=== PATIENT | male | born 1930 | race Caucasian/White ===

== ENCOUNTER 2018-03-30 09:00 | Emergency (ER) | payer MEDICARE ==
[~2018-03-30] VITALS: Ht 175.3 cm; Wt 81.8 kg
[2018-03-30] MEDS ORDERED: HYDROcodone/acetaminophen 10/325mg tab PO ONE (10:25)
[2018-03-30] MEDS ORDERED: ondansetron/PF 4mg/2ml inj IV ONE (10:25)
[2018-03-30] MEDS ORDERED: lactulose 20gm/30ml cup PO ONE (10:25)
[2018-03-30] MEDS ORDERED: ONDA8TAB9 PO (10:27)
[2018-03-30] MEDS ORDERED: HYDR-565 PO (10:27)
[2018-03-30] MEDS ORDERED: LACT10SO PO (10:27)
[2018-03-30] MEDS ORDERED: ondansetron 4mg rapidly disintigrating tab PO ONE (10:30)
[2018-03-30 10:43] VITALS: BP 132/71
== END 2018-03-30 10:50 | disposition home or self-care (01) ==
LOC: ER 09:01
DX: S39.012A Strain of muscle, fascia and tendon of lower back, initial encounter (principal); K59.00 Constipation, unspecified; R11.0 Nausea; E78.00 Pure hypercholesterolemia, unspecified; Z98.890 Other specified postprocedural states; Z79.899 Other long term (current) drug therapy; X58.XXXA Exposure to other specified factors, initial encounter; Y93.89 Activity, other specified; Y92.89 Other specified places as the place of occurrence of the external cause; Y99.8 Other external cause status
CPT/HCPCS: 99284

== ENCOUNTER 2018-04-06 09:38 | Emergency (ER) | payer MEDICARE, OTHER ==
[~2018-04-06] VITALS: Ht 175.3 cm; Wt 79.5 kg
[~2018-04-06 09:38] MED LIST: HYDR-565 PO; LACT10SO PO; ONDA8TAB9 PO
[2018-04-06] MEDS ORDERED: normal saline 1000ML IV soln IVB ONE (10:45)
[2018-04-06 11:13] LABS: BASOPHILS % (AUTO) 0.3 % (0-1); EOSINOPHILS # (AUTO) 0.3 X10'3 (0-0.9); EOSINOPHILS % (AUTO) 3.8 % (0-6); HEMATOCRIT 41.2 % (42.0-52.0); HEMOGLOBIN 14.3 g/dl (14.0-17.9); LYMPHOCYTES # (AUTO) 0.8 X10'3 (1.1-4.8); LYMPHOCYTES % (AUTO) 11.5 % (21-51); MEAN CORPUSCULAR HEMOGLOBIN 33.6 PG (27.0-31.0); MEAN CORPUSCULAR HGB CONC 34.6 % (33.0-36.5); MEAN CORPUSCULAR VOLUME 97.1 FL (78-98); MEAN PLATELET VOLUME 8.2 FL (7.4-10.4); MONOCYTES # (AUTO) 0.7 X10'3 (0-0.9); NEUTROPHILS # (AUTO) 5.5 X10'3 (1.8-7.7); NEUTROPHILS % (AUTO) 75.4 % (42-75); PLATELET COUNT 226 X10'3 (140-440); RED BLOOD COUNT 4.24 X10'6 (4.70-6.10); WHITE BLOOD COUNT 7.3 X10'3 (4.5-11.0)
[2018-04-06 11:34] LABS: ALANINE AMINOTRANSFERASE 27 U/L (12-78); ALBUMIN/GLOBULIN RATIO 0.8 (1.1-1.5); ALKALINE PHOSPHATASE 90 IU/L (46-116); ANION GAP 11 (8-16); ASPARTATE AMINO TRANSFERASE 33 U/L (10-37); BILIRUBIN,TOTAL 1.9 MG/DL (0.1-1.0); BLOOD UREA NITROGEN 19 MG/DL (7-18); BUN/CREATININE RATIO 20.4 (5.4-32.0); CALCIUM 8.7 MG/DL (8.5-10.1); CHLORIDE 101 MMOL/L (99-107); CREATININE 0.93 MG/DL (0.60-1.10); GLUCOSE 89 MG/DL (70-104); POTASSIUM 4.1 MMOL/L (3.5-5.1); SODIUM 138 MMOL/L (135-145); TOTAL CARBON DIOXIDE 25.8 MMOL/L (24-32); TOTAL PROTEIN 6.7 G/DL (6.4-8.2); eGFR 77 ML/MIN
[2018-04-06 11:37] LABS: ETHANOL < 0.010 GM/DL (0.0-0.010)
[2018-04-06 12:33] LABS: CLARITY,URINE CLEAR (Clear); COLOR,URINE YELLOW (Yellow); GLUCOSE, URINE NEGATIVE (Neg); KETONES,URINE 40 mg/dl (Neg); LEUKOCYTE ESTERASE ,URINE SMALL (Neg); NITRITES, URINE NEGATIVE (Neg); OCCULT BLOOD,URINE TRACE-INTACT (Neg); PROTEIN,URINE NEGATIVE (Neg); UROBILINOGEN,URINE 0.2 E.U/dL (0.2-1.0)
[2018-04-06 12:35] LABS: UA COLLECTION TYPE CLN CATCH MIDSTREAM
[2018-04-06 12:40] LABS: BACTERIA,URINE NONE SEEN /HPF (Neg); RBC,URINE 0-2 /HPF (0-2); SQUAMOUS EPITHELIAL CELL,UR FEW /LPF (FEW)
[2018-04-06 14:57] VITALS: BP 149/75
== END 2018-04-06 14:59 | disposition home or self-care (01) ==
LOC: ER 09:38
DX: S00.83XA Contusion of other part of head, initial encounter (principal); S00.431A Contusion of right ear, initial encounter; R44.3 Hallucinations, unspecified; T50.995A Adverse effect of other drugs, medicaments and biological substances, initial encounter; M54.5 Low back pain; E78.00 Pure hypercholesterolemia, unspecified; J44.9 Chronic obstructive pulmonary disease, unspecified; Z87.891 Personal history of nicotine dependence; Z98.890 Other specified postprocedural states; W19.XXXA Unspecified fall, initial encounter; Y93.89 Activity, other specified; Y92.89 Other specified places as the place of occurrence of the external cause; Y92.9 Unspecified place or not applicable; Y99.9 Unspecified external cause status
CPT/HCPCS: 36415; 70450; 71045; 80053; 80320; 81001; 84443; 84484; 85025; 87088; 93005; 99285; J7030